=== PATIENT | female | born 1945 | race Caucasian/White ===

== ENCOUNTER → 2016-09-30 | Day surgery (SDC) | payer OTHER ==
[~2016-09-30] MED LIST: BUPIVACAINE HCL PF 0.5% 30 ML VIAL ONE; LACTATED RINGER'S 1000 ML INJ 1,000 ML ONE; MIDAZOLAM HCL 2 MG/2 ML VIAL ONE; MORPHINE SULFATE 4 MG/ML INJ ONE; ONDANSETRON HCL 4 MG/2 ML VIAL IV PUSH ONE; PROPOFOL 200 MG/20 ML AMP IV ONE; ceFAZolin 2 GM PREMIX 50 ML ONE
--- NOTE | 2016-10-26 10:56 | MP ---
cc: SHAYNA RODRIGUEZ Corrected: 10/27/2016 DATE OF SURGERY September 30, 2016 PREOPERATIVE DIAGNOSES 1. Right foot second digit hammertoe. 2. Right foot third digit hammertoe. 3. Right foot fourth digit hammertoe. 4. Right foot fifth digit hammertoe. POSTOPERATIVE DIAGNOSES 1. Right foot second digit hammertoe. 2. Right foot third digit hammertoe. 3. Right foot fourth digit hammertoe. 4. Right foot fifth digit hammertoe. PROCEDURES PERFORMED 1. Right foot second digit hammertoe repair. 2. Right foot third digit hammertoe repair. 3. Right foot fourth digit hammertoe repair. 4. Right foot fifth digit hammertoe repair. PATHOLOGY SENT None. ANESTHESIA General. HEMOSTASIS Pneumatic ankle tourniquet at 250 mmHg. ESTIMATED BLOOD LOSS Less than 5 mL. MATERIALS USED One 0.062 K-wire and two 0.045 K-wires. 3-0 Monocryl. 3-0 Prolene. INJECTABLES 10 cc of 0.5% Marcaine plain. COMPLICATIONS None. INDICATIONS Ms. Tanner is a 71-year-old female patient well-known to me. She had her left foot painful hammertoes repaired in May of last year and has elected to have her right foot painful hammertoes repaired at this time. The consent was signed. The procedure was explained. No guarantees were given. PROCEDURE Under mild sedation, the patient was brought into the operating room, placed on the operating table in a supine position. Following IV sedation, a pneumatic ankle tourniquet was placed around the right ankle. The foot was then scrubbed, prepped and draped in the usual aseptic manner. Attention was directed to the dorsal aspect of the second digit PIPJ. A linear longitudinal incision was created over the joint, deepening through skin and subcutaneous tissue with care being taken to identify and retract any vital neurovascular structures. Once the incision was deepened to the level of the joint, the extensor tendon was transversely severed to allow access into the joint. Collateral ligaments of the tendon were severed as well. The opposing cartilaginous surfaces were removed using an oscillating saw. The area was flushed with copious amounts of sterile saline. A K-wire in appropriate size was then retrograde drilled through all three phalanges under fluoroscopy. Proper positioning of the digit as well as proper alignment of the K-wire was confirmed. There was a noted reduction in deformity of the PIPJ. The area was then flushed with copious amounts of sterile saline. The extensor tendon was repaired using 3-0 Monocryl. Deep tissue was repaired using 3-0 Monocryl and the skin was prepared using 3-0 Prolene. The K-wire was cut and a Jurgan's ball was placed on the end for safety. The same procedure was repeated for the third and fourth digits as well. The same procedure was repeated for the fifth digit but only the distal head of the proximal phalanx was removed and the incision was two elliptical style incisions to create a medial and dorsal rotation of the fifth digit. The foot was then cleaned with sterile saline. The pneumatic tourniquet was released. There was a prompt hyperemic response noted to all digits of the right foot. 10 cc of 0.5% Marcaine plain was injected around the incision site. A sterile dressing of Adaptic, 4x4s, Trace and an Constantine wrap was applied. The patient tolerated the procedure and the anesthesia well. She will recover in the PACU for a period of time before being discharged home with written and oral postoperative instructions. KAM Florence /7:53 AM /10:38 AM MTDRasheed
== END | disposition home or self-care (01) ==
LOC: ESDC 08:56
PROVIDERS: ATTEND Podiatrist Foot & Ankle Surgery
DX: M20.41 Other hammer toe(s) (acquired), right foot (principal)
CPT/HCPCS: 01480; 28285; 73630; 76000; J0690; J2250; J2270; J2405; J3010; J7120

== ENCOUNTER → 2017-06-14 | Outpatient (CLI) | payer OTHER ==
[~2017-06-14] MED LIST changes: +ALBUAER3 INH; +AMAN100T PO; +ASPI81CH37 PO; +ATOR20TA15; -BUPIVACAINE HCL PF 0.5% 30 ML VIAL ONE; +BUPR150T5 PO; +CARD180C5 PO; +CART180C3 PO; +CENTCHW4 CHEW; +CVS20TAB PO; +DIPH2.5T14 PO; +DULO1CAP PO; +FLUT1INH INH; +HYDR-3580 PO; -LACTATED RINGER'S 1000 ML INJ 1,000 ML ONE; +MELO7.5T4 PO; -MIDAZOLAM HCL 2 MG/2 ML VIAL ONE; -MORPHINE SULFATE 4 MG/ML INJ ONE; +NITRSPR6; -ONDANSETRON HCL 4 MG/2 ML VIAL IV PUSH ONE; +POTA-163 PO; -PROPOFOL 200 MG/20 ML AMP IV ONE; +RISE1TAB13 PO; +TEMA30CA PO; +TRAZ100T6 PO; +VITA100018 PO; -ceFAZolin 2 GM PREMIX 50 ML ONE
== END ==
LOC: HORT 16:47
PROVIDERS: ATTEND Neurological Surgery
DX: Z47.89 Encounter for other orthopedic aftercare (principal)
CPT/HCPCS: L0120